=== PATIENT | male | born 1990 | race African-American/Black ===

== ENCOUNTER 2023-12-02 22:41 | Inpatient (IN) | payer MEDICAID, OTHER ==
--- NOTE | 2023-12-02 23:00 | ED ---
Psych HPI - General Chief Complaint: Psychiatric Symptoms Stated Complaint: Mental health Time Seen by Provider: 12/02/23 22:46 Source: patient, EMS, RN notes reviewed, old records reviewed Mode of arrival: EMS Limitations: no limitations - History of Present Illness Initial Comments: This is a 33-year-old male to the ER for psychiatric evaluation presenting for psychiatric evaluation and treatment today take overdose scottie BAÑUELOS Complaint: suicidal ideation, feels depressed -: hour(s) Associated Psychiatric Symptoms: depression, suicidal ideation History of same: Yes Quality: constant Improves With: none Worsens With: none Context: recent alcohol abuse Treatments Prior to Arrival: placed on mental health hold If Self Harm: admits thoughts of self harm - Related Data Home Medications Medication Instructions Recorded Confirmed No Known Home Medications 12/03/23 12/03/23 Allergies Allergy/AdvReac Type Severity Reaction Status Date / Time No Known Allergies Allergy Verified 12/03/23 12:04 Review of Systems ROS Statement: Those systems with pertinent positive or pertinent negative responses have been documented in the HPI. ROS Other: All systems not noted in ROS Statement are negative. Past Medical History Past Medical History: No Reported History History of Any Multi-Drug Resistant Organisms: None Reported Past Surgical History: No Surgical Hx Reported Smoking Status: Current every day smoker Past Alcohol Use History: Occasional Past Drug Use History: None Reported General Exam General appearance: alert, in no apparent distress Head exam: Present: atraumatic, normocephalic, normal inspection Eye exam: Present: normal appearance, PERRL, EOMI. Absent: scleral icterus, conjunctival injection, periorbital swelling ENT exam: Present: normal exam, mucous membranes moist Neck exam: Present: normal inspection. Absent: tenderness, meningismus, lymphadenopathy Respiratory exam: Present: normal lung sounds bilaterally. Absent: respiratory distress, wheezes, rales, rhonchi, stridor Cardiovascular Exam: Present: regular rate, normal rhythm, normal heart sounds. Absent: systolic murmur, diastolic murmur, rubs, gallop, clicks GI/Abdominal exam: Present: soft, normal bowel sounds. Absent: distended, tenderness, guarding, rebound, rigid Extremities exam: Present: normal inspection, full ROM, normal capillary refill. Absent: tenderness, pedal edema, joint swelling, calf tenderness Back exam: Present: normal inspection Neurological exam: Present: alert, oriented X3, CN II-XII intact Psychiatric exam: Present: normal affect, normal mood Skin exam: Present: warm, dry, intact, normal color. Absent: rash Course Vital Signs 12/02/23 12/02/23 12/03/23 22:43 23:18 06:36 Temperature 98.6 F 98.3 F Pulse Rate 80 75 Pulse Rate [ Pulse Oximetery ] Respiratory 18 20 16 Rate Blood Pressure 117/77 126/82 Blood Pressure [Right Arm] O2 Sat by Pulse 97 100 Oximetry 12/03/23 12/03/23 17:09 20:15 Temperature 97.4 F L Pulse Rate 69 Pulse Rate [ 74 Pulse Oximetery ] Respiratory 16 18 Rate Blood Pressure 125/78 Blood Pressure 122/76 [Right Arm] O2 Sat by Pulse 98 100 Oximetry - Reevaluation(s) Reevaluation #1: 12/03/23 00:18 Medical records reviewed Reevaluation #2: Medically clear for psychiatric evaluation Reevaluation #3: Patient has no improvement in symptoms Reevaluation #4: Differential Mental Health Depression, anxiety, bipolar, psychosis, schizophrenia, borderline personality, situational depression, adjustment disorder, behavioral disorder, brain tumor, malingering, substance abuse, encephalopathy, medication reaction, dementia, hypothyroidism, degenerative neurologic disorder, lupus.... This is not meant to be all-inclusive list Medical Decision Making - Medical Decision Making 33 male will be admitted for psychiatric evaluation and treatment - Lab Data Result diagrams: 12/03/23 01:05 12/03/23 01:05 Lab Results 12/03/23 12/03/23 12/03/23 Range/Units 00:30 01:05 01:05 WBC 8.9 (3.8-10.6) k/uL RBC 4.79 (4.30-5.90) m/uL Hgb 15.3 (13.0-17.5) gm/dL Hct 46.0 (39.0-53.0) % MCV 96.1 (80.0-100.0) fL MCH 32.0 (25.0-35.0) pg MCHC 33.3 (31.0-37.0) g/dL RDW 11.7 (11.5-15.5) % Plt Count 185 (150-450) k/uL MPV 7.2 Neutrophils % 76 % Lymphocytes % 14 % Monocytes % 6 % Eosinophils % 2 % Basophils % 1 % Neutrophils # 6.8 (1.3-7.7) k/uL Lymphocytes # 1.3 (1.0-4.8) k/uL Monocytes # 0.5 (0-1.0) k/uL Eosinophils # 0.2 (0-0.7) k/uL Basophils # 0.1 (0-0.2) k/uL PT 12.3 (10.0-12.5) sec INR 1.2 H (<1.2) Sodium (137-145) mmol/L Potassium (3.5-5.1) mmol/L Chloride (98-107) mmol/L Carbon Dioxide (22-30) mmol/L Anion Gap mmol/L BUN (9-20) mg/dL Creatinine (0.66-1.25) mg/dL Est GFR (CKD-EPI)AfAm (>60 ml/min/1.73 sqM) Est GFR (CKD-EPI)NonAf (>60 ml/min/1.73 sqM) Glucose (74-99) mg/dL Calcium (8.4-10.2) mg/dL Total Bilirubin (0.2-1.3) mg/dL Conjugated Bilirubin (0.0-0.3) mg/dL Unconjugated Bilirubin (0.0-1.1) mg/dL Delta Bilirubin (0.0-0.2) mg/dL AST (17-59) U/L ALT (4-49) U/L Alkaline Phosphatase (38-126) U/L Troponin I (0.000-0.034) ng/mL Total Protein (6.3-8.2) g/dL Albumin (3.5-5.0) g/dL Lipase (23-300) U/L Urine Color Yellow Urine Appearance Cloudy (Clear) Urine pH 6.0 (5.0-8.0) Ur Specific [place] 1.039 H (1.001-1.035) Urine Protein Trace H (Negative) Urine Glucose (UA) Negative (Negative) Urine Ketones Trace H (Negative) Urine Blood Negative (Negative) Urine Nitrite Negative (Negative) Urine Bilirubin Negative (Negative) Urine Urobilinogen 2.0 (<2.0) mg/dL Ur Leukocyte Esterase Moderate H (Negative) Urine RBC 12 H (0-5) /hpf Urine WBC 117 H (0-5) /hpf Calcium Oxalate Crystal Many H (None) /hpf Hyaline Casts 3 H (0-2) /lpf Urine Mucus Many H (None) /hpf Salicylates mg/dL Urine Opiates Screen Not Detected (NotDetected) Ur Oxycodone Screen Not Detected (NotDetected) Urine Methadone Screen Not Detected (NotDetected) Acetaminophen ug/mL Ur Barbiturates Screen Not Detected (NotDetected) U Tricyclic Antidepress Not Detected (NotDetected) Ur Phencyclidine Scrn Not Detected (NotDetected) Ur Amphetamines Screen Not Detected (NotDetected) U Methamphetamines Scrn Not Detected (NotDetected) U Benzodiazepines Scrn Not Detected (NotDetected) Urine Cocaine Screen Not Detected (NotDetected) U Marijuana (THC) Screen Detected H (NotDetected) Serum Alcohol mg/dL SARS-CoV-2 (PCR) (Not Detectd) 12/03/23 12/03/23 12/03/23 Range/Units 01:05 01:05 02:34 WBC (3.8-10.6) k/uL RBC (4.30-5.90) m/uL Hgb (13.0-17.5) gm/dL Hct (39.0-53.0) % MCV (80.0-100.0) fL MCH (25.0-35.0) pg MCHC (31.0-37.0) g/dL RDW (11.5-15.5) % Plt Count (150-450) k/uL MPV Neutrophils % % Lymphocytes % % Monocytes % % Eosinophils % % Basophils % % Neutrophils # (1.3-7.7) k/uL Lymphocytes # (1.0-4.8) k/uL Monocytes # (0-1.0) k/uL Eosinophils # (0-0.7) k/uL Basophils # (0-0.2) k/uL PT (10.0-12.5) sec INR (<1.2) Sodium 140 (137-145) mmol/L Potassium 3.8 (3.5-5.1) mmol/L Chloride 109 H (98-107) mmol/L Carbon Dioxide 29 (22-30) mmol/L Anion Gap 2 mmol/L BUN 9 (9-20) mg/dL Creatinine 0.80 (0.66-1.25) mg/dL Est GFR (CKD-EPI)AfAm >90 (>60 ml/min/1.73 sqM) Est GFR (CKD-EPI)NonAf >90 (>60 ml/min/1.73 sqM) Glucose 88 (74-99) mg/dL Calcium 9.1 (8.4-10.2) mg/dL Total Bilirubin 0.8 (0.2-1.3) mg/dL Conjugated Bilirubin 0.0 (0.0-0.3) mg/dL Unconjugated Bilirubin 0.6 (0.0-1.1) mg/dL Delta Bilirubin 0.2 (0.0-0.2) mg/dL AST 16 L (17-59) U/L ALT 10 (4-49) U/L Alkaline Phosphatase 57 (38-126) U/L Troponin I <0.012 (0.000-0.034) ng/mL Total Protein 6.1 L (6.3-8.2) g/dL Albumin 4.1 (3.5-5.0) g/dL Lipase 46 (23-300) U/L Urine Color Urine Appearance (Clear) Urine pH (5.0-8.0) Ur Specific [place] (1.001-1.035) Urine Protein (Negative) Urine Glucose (UA) (Negative) Urine Ketones (Negative) Urine Blood (Negative) Urine Nitrite (Negative) Urine Bilirubin (Negative) Urine Urobilinogen (<2.0) mg/dL Ur Leukocyte Esterase (Negative) Urine RBC (0-5) /hpf Urine WBC (0-5) /hpf Calcium Oxalate Crystal (None) /hpf Hyaline Casts (0-2) /lpf Urine Mucus (None) /hpf Salicylates <1.0 mg/dL Urine Opiates Screen (NotDetected) Ur Oxycodone Screen (NotDetected) Urine Methadone Screen (NotDetected) Acetaminophen 18.8 13.2 ug/mL Ur Barbiturates Screen (NotDetected) U Tricyclic Antidepress (NotDetected) Ur Phencyclidine Scrn (NotDetected) Ur Amphetamines Screen (NotDetected) U Methamphetamines Scrn (NotDetected) U Benzodiazepines Scrn (NotDetected) Urine Cocaine Screen (NotDetected) U Marijuana (THC) Screen (NotDetected) Serum Alcohol <10 mg/dL SARS-CoV-2 (PCR) (Not Detectd) 12/03/23 Range/Units 14:48 WBC (3.8-10.6) k/uL RBC (4.30-5.90) m/uL Hgb (13.0-17.5) gm/dL Hct (39.0-53.0) % MCV (80.0-100.0) fL MCH (25.0-35.0) pg MCHC (31.0-37.0) g/dL RDW (11.5-15.5) % Plt Count (150-450) k/uL MPV Neutrophils % % Lymphocytes % % Monocytes % % Eosinophils % % Basophils % % Neutrophils # (1.3-7.7) k/uL Lymphocytes # (1.0-4.8) k/uL Monocytes # (0-1.0) k/uL Eosinophils # (0-0.7) k/uL Basophils # (0-0.2) k/uL PT (10.0-12.5) sec INR (<1.2) Sodium (137-145) mmol/L Potassium (3.5-5.1) mmol/L Chloride (98-107) mmol/L Carbon Dioxide (22-30) mmol/L Anion Gap mmol/L BUN (9-20) mg/dL Creatinine (0.66-1.25) mg/dL Est GFR (CKD-EPI)AfAm (>60 ml/min/1.73 sqM) Est GFR (CKD-EPI)NonAf (>60 ml/min/1.73 sqM) Glucose (74-99) mg/dL Calcium (8.4-10.2) mg/dL Total Bilirubin (0.2-1.3) mg/dL Conjugated Bilirubin (0.0-0.3) mg/dL Unconjugated Bilirubin (0.0-1.1) mg/dL Delta Bilirubin (0.0-0.2) mg/dL AST (17-59) U/L ALT (4-49) U/L Alkaline Phosphatase (38-126) U/L Troponin I (0.000-0.034) ng/mL Total Protein (6.3-8.2) g/dL Albumin (3.5-5.0) g/dL Lipase (23-300) U/L Urine Color Urine Appearance (Clear) Urine pH (5.0-8.0) Ur Specific [place] (1.001-1.035) Urine Protein (Negative) Urine Glucose (UA) (Negative) Urine Ketones (Negative) Urine Blood (Negative) Urine Nitrite (Negative) Urine Bilirubin (Negative) Urine Urobilinogen (<2.0) mg/dL Ur Leukocyte Esterase (Negative) Urine RBC (0-5) /hpf Urine WBC (0-5) /hpf Calcium Oxalate Crystal (None) /hpf Hyaline Casts (0-2) /lpf Urine Mucus (None) /hpf Salicylates mg/dL Urine Opiates Screen (NotDetected) Ur Oxycodone Screen (NotDetected) Urine Methadone Screen (NotDetected) Acetaminophen ug/mL Ur Barbiturates Screen (NotDetected) U Tricyclic Antidepress (NotDetected) Ur Phencyclidine Scrn (NotDetected) Ur Amphetamines Screen (NotDetected) U Methamphetamines Scrn (NotDetected) U Benzodiazepines Scrn (NotDetected) Urine Cocaine Screen (NotDetected) U Marijuana (THC) Screen (NotDetected) Serum Alcohol mg/dL SARS-CoV-2 (PCR) Not Detected (Not Detectd) Disposition Clinical Impression: Acute psychosis, Depression, Adjustment reaction of adult life, Suicidal ideation Disposition: TRANSFER TO PSYCH HOSP/UNIT Condition: Fair Is patient prescribed a controlled substance at d/c from ED?: No
[2023-12-03] MEDS: SODIUM CHLORIDE 0.9% 500 ML 500 ML IV STA (00:50)
[2023-12-03] MEDS: SODIUM CHLORIDE 0.9% 1,000 ML IV STA (00:50)
[2023-12-03 01:23] LABS: Basophils # (A) 0.1 k/uL (0-0.2); Basophils % (A) 1 %; Eosinophils # (A) 0.2 k/uL (0-0.7); Eosinophils % (A) 2 %; HGB 15.3 gm/dL (13.0-17.5); Lymphocytes # (A) 1.3 k/uL (1.0-4.8); Lymphocytes % (A) 14 %; MCHC 33.3 g/dL (31.0-37.0); MCV 96.1 fL (80.0-100.0); Mean Platelet Volume 7.2; Monocytes # (A) 0.5 k/uL (0-1.0); Monocytes % (A) 6 %; Neutrophils # (A) 6.8 k/uL (1.3-7.7); Neutrophils % (A) 76 %; Platelet Count 185 k/uL (150-450); RBC 4.79 m/uL (4.30-5.90); RDW 11.7 % (11.5-15.5); WBC 8.9 k/uL (3.8-10.6)
[2023-12-03 01:28] LABS: ALT 10 U/L (4-49); AST 16 U/L (17-59); Acetaminophen 18.8 ug/mL; African American GFR (CKD) >90 (>60 ml/min/1.73 sqM); Albumin 4.1 g/dL (3.5-5.0); Alcohol <10 mg/dL; Alkaline Phosphatase 57 U/L (38-126); Anion Gap 2 mmol/L; Bilirubin, Delta 0.2 mg/dL (0.0-0.2); Bilirubin,Unconjugated 0.6 mg/dL (0.0-1.1); Blood Urea Nitrogen 9 mg/dL (9-20); Calcium 9.1 mg/dL (8.4-10.2); Carbon Dioxide 29 mmol/L (22-30); Chloride 109 mmol/L (98-107); Glucose 88 mg/dL (74-99); Lipase 46 U/L (23-300); Non-African American GFR(CKD) >90 (>60 ml/min/1.73 sqM); Potassium 3.8 mmol/L (3.5-5.1); Salicylate <1.0 mg/dL; Sodium 140 mmol/L (137-145); Total Bilirubin 0.8 mg/dL (0.2-1.3); Total Protein 6.1 g/dL (6.3-8.2)
[2023-12-03 02:05] LABS: INR 1.2 (<1.2); Prothrombin Time 12.3 sec (10.0-12.5)
[2023-12-03 02:10] LABS: Appearance,Urine Cloudy (Clear); Bilirubin,Urine Negative (Negative); Blood,Urine Negative (Negative); Calcium Oxalate Crystals,Urine Many /hpf; Color,Urine Yellow; Glucose,Urine (UA) Negative (Negative); Hyaline Casts,Urine 3 /lpf (0-2); Ketones,Urine Trace (Negative); Leukocyte Esterase,Urine Moderate (Negative); Mucus,Urine Many /hpf; Nitrite,Urine Negative (Negative); Protein,Urine Trace (Negative); RBC,Urine 12 /hpf (0-5); Specific Gravity,Urine 1.039 (1.001-1.035); WBC,Urine 117 /hpf (0-5)
[2023-12-03 02:11] LABS: Amphetamine Screen,Urine Not Detected (NotDetected); Barbiturate Screen,Urine Not Detected (NotDetected); Benzodiazepines Screen,Urine Not Detected (NotDetected); Cocaine Screen,Urine Not Detected (NotDetected); Methadone Screen, Urine Not Detected (NotDetected); Opiate Screen,Urine Not Detected (NotDetected); Oxycodone Screen, Urine Not Detected (NotDetected); Phencyclidine Screen,Urine Not Detected (NotDetected); Tricyclic Antidepressant,Urine Not Detected (NotDetected); Urn Cannabinoid Scrn Detected (NotDetected)
[2023-12-03] MEDS: NICOTINE 21MG/24HR PATCH TRANSDERM STA (14:48)
[2023-12-03] MEDS ORDERED: LORazepam 2 MG/ML INJ IM PRN (17:09)
[2023-12-03] MEDS ORDERED: IBUPROFEN 600 MG TAB PO PRN (17:09)
[2023-12-03] MEDS ORDERED: HALOPERIDOL LACTATE 5 MG/ML 1 ML VIAL IM PRN (17:09)
[2023-12-03] MEDS ORDERED: MAG HYDROX/AL HYDROX/SIMETH 355 ML BOTTLE PO PRN (17:09)
[2023-12-03] MEDS ORDERED: ACETAMINOPHEN TAB 325 MG TAB PO PRN (17:09)
[2023-12-03] MEDS ORDERED: haloperidoL 5 MG TAB PO PRN (17:09)
[2023-12-03] MEDS ORDERED: MAGNESIUM HYDROXIDE 2,400 MG/30 ML CUP PO PRN (17:09)
--- NOTE | 2023-12-04 00:05 | P.CONS ---
History of Present Illness - Reason for Consult Consult date: 12/03/23 - History of Present Illness The patient is a 33-year-old male with no known PMH who had presented to the emergency room for depression and suicidal ideation after apparently attempting to overdose. The patient was admitted to the mental health unit where he was seen and evaluated. The patient notes that he took too much NyQuil accidentally while he was trying to sleep. He denies any past medical history and no active complaints at the time of interview. He does report smoking half pack of cigarettes daily. Denied illicit substance or alcohol use. 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 Denied experiencing chest discomfort, shortness of breath, fever, chills, cough, nausea, vomiting, abdominal pain, dysuria, diarrhea. Review of systems: Pertinent positives and negatives as discussed in HPI, a complete review of systems was performed and all other systems are negative. Physical examination: General: non toxic, no distress, appears at stated age, normal weight Derm: no unusual rashes/lesions, no unusual ecchymoses, warm, dry Head: atraumatic, normocephalic, symmetric Eyes: EOMI, no lid lag, anicteric sclera ENT: Nose and ears atraumatic, no thrush, no pharyngeal erythema Neck: trachea midline, supple Mouth: no lip lesion, mucus membranes moist Cardiovascular: S1S2 reg, no murmur, no edema Lungs: CTA bilateral, no rhonchi, no rales , no accessory muscle use Abdominal: soft, nontender to palpation, no guarding Ext: no gross muscle atrophy, no contractures, Neuro: No gross focal neuro deficits noted Psych: Alert, oriented, appropriate affect Assessment: Abnormal UA, patient currently asymptomatic Marijuana abuse Depression Imaging: None performed Data Review: Urine toxicology positive for marijuana with UA showing 117 WBCs and 12 RBCs with moderate leukocyte esterase and trace ketones. Plan: Hold off on any antibiotics at this time as patient is asymptomatic Advised on importance of cessation of marijuana use Defer management of depression to the primary psychiatry service Thank you for allowing us to participate in the care of this patient. We will follow peripherally. Do not hesitate to contact us with questions. Someone can be reached from the [facility] hospitalist group at all hours of the day at [phone]. Past Medical History Past Medical History: No Reported History History of Any Multi-Drug Resistant Organisms: None Reported Past Surgical History: No Surgical Hx Reported Past Psychological History: No Psychological Hx Reported Additional Psychological History / Comment(s): Pt. feels depressed but has no formal diagnosis Smoking Status: Current every day smoker Past Alcohol Use History: Occasional Past Drug Use History: None Reported Medications and Allergies Home Medications Medication Instructions Recorded Confirmed Type No Known Home Medications 12/03/23 12/03/23 History Allergies Allergy/AdvReac Type Severity Reaction Status Date / Time No Known Allergies Allergy Verified 12/03/23 12:04 Physical Exam Vitals: Vital Signs Temp Pulse Pulse Resp BP BP Pulse Ox 12/03/23 20:15 69 18 125/78 100 12/03/23 17:09 97.4 F L 74 16 122/76 98 12/03/23 06:36 98.3 F 75 16 126/82 100 Intake and Output 12/03/23 12/03/23 12/04/23 14:59 22:59 06:59 Other: Weight 76.43 kg Results CBC & Chem 7: 12/03/23 01:05 12/03/23 01:05 Labs: Abnormal Lab Results - Last 24 Hours (Table) 12/03/23 12/03/23 12/03/23 Range/Units 00:30 01:05 01:05 INR 1.2 H (<1.2) Chloride 109 H (98-107) mmol/L AST 16 L (17-59) U/L Total Protein 6.1 L (6.3-8.2) g/dL Ur Specific [place] 1.039 H (1.001-1.035) Urine Protein Trace H (Negative) Urine Ketones Trace H (Negative) Ur Leukocyte Esterase Moderate H (Negative) Urine RBC 12 H (0-5) /hpf Urine WBC 117 H (0-5) /hpf Calcium Oxalate Crystal Many H (None) /hpf Hyaline Casts 3 H (0-2) /lpf Urine Mucus Many H (None) /hpf U Marijuana (THC) Screen Detected H (NotDetected)
[2023-12-04] MEDS ORDERED: NICOTINE 14MG/24HR PATCH TRANSDERM SCH (09:00)
[2023-12-04] MEDS: NICOTINE GUM (POLACRILEX) 2 MG GUM BUCCAL PRN (12:02)
--- NOTE | 2023-12-04 14:25 | P.HP ---
Psychiatric H&P - . H&P Date: 12/04/23 History & Physical: Allergies Allergy/AdvReac Type Severity Reaction Status Date / Time No Known Allergies Allergy Verified 12/03/23 12:04 Vital Signs Temp 97.1 F L 12/04/23 06:00 Pulse 70 12/04/23 06:00 Resp 17 12/04/23 06:00 BP 117/76 12/04/23 06:00 Pulse Ox 100 12/04/23 06:00 FiO2 Intake & Output 12/03/23 12/04/23 12/04/23 18:59 06:59 18:59 Weight 76.43 kg Laboratory Last Values WBC 8.9 k/uL (3.8-10.6) 12/03/23 01:05 RBC 4.79 m/uL (4.30-5.90) 12/03/23 01:05 Hgb 15.3 gm/dL (13.0-17.5) 12/03/23 01:05 Hct 46.0 % (39.0-53.0) 12/03/23 01:05 MCV 96.1 fL (80.0-100.0) 12/03/23 01:05 MCH 32.0 pg (25.0-35.0) 12/03/23 01:05 MCHC 33.3 g/dL (31.0-37.0) 12/03/23 01:05 RDW 11.7 % (11.5-15.5) 12/03/23 01:05 Plt Count 185 k/uL (150-450) 12/03/23 01:05 MPV 7.2 12/03/23 01:05 Neutrophils % 76 % 12/03/23 01:05 Lymphocytes % 14 % 12/03/23 01:05 Monocytes % 6 % 12/03/23 01:05 Eosinophils % 2 % 12/03/23 01:05 Basophils % 1 % 12/03/23 01:05 Neutrophils # 6.8 k/uL (1.3-7.7) 12/03/23 01:05 Lymphocytes # 1.3 k/uL (1.0-4.8) 12/03/23 01:05 Monocytes # 0.5 k/uL (0-1.0) 12/03/23 01:05 Eosinophils # 0.2 k/uL (0-0.7) 12/03/23 01:05 Basophils # 0.1 k/uL (0-0.2) 12/03/23 01:05 PT 12.3 sec (10.0-12.5) 12/03/23 01:05 INR 1.2 (<1.2) H 12/03/23 01:05 Sodium 140 mmol/L (137-145) 12/03/23 01:05 Potassium 3.8 mmol/L (3.5-5.1) 12/03/23 01:05 Chloride 109 mmol/L (98-107) H 12/03/23 01:05 Carbon Dioxide 29 mmol/L (22-30) 12/03/23 01:05 Anion Gap 2 mmol/L 12/03/23 01:05 BUN 9 mg/dL (9-20) 12/03/23 01:05 Creatinine 0.80 mg/dL (0.66-1.25) 12/03/23 01:05 Est GFR (CKD-EPI)AfAm >90 (>60 ml/min/1.73 sqM) 12/03/23 01:05 Est GFR (CKD-EPI)NonAf >90 (>60 ml/min/1.73 sqM) 12/03/23 01:05 Glucose 88 mg/dL (74-99) 12/03/23 01:05 Calcium 9.1 mg/dL (8.4-10.2) 12/03/23 01:05 Total Bilirubin 0.8 mg/dL (0.2-1.3) 12/03/23 01:05 Conjugated Bilirubin 0.0 mg/dL (0.0-0.3) 12/03/23 01:05 Unconjugated Bilirubin 0.6 mg/dL (0.0-1.1) 12/03/23 01:05 Delta Bilirubin 0.2 mg/dL (0.0-0.2) 12/03/23 01:05 AST 16 U/L (17-59) L 12/03/23 01:05 ALT 10 U/L (4-49) 12/03/23 01:05 Alkaline Phosphatase 57 U/L (38-126) 12/03/23 01:05 Troponin I <0.012 ng/mL (0.000-0.034) 12/03/23 01:05 Total Protein 6.1 g/dL (6.3-8.2) L 12/03/23 01:05 Albumin 4.1 g/dL (3.5-5.0) 12/03/23 01:05 Lipase 46 U/L (23-300) 12/03/23 01:05 TSH 1.440 mIU/L (0.465-4.680) 12/04/23 07:53 Urine Color Yellow 12/03/23 00:30 Urine Appearance Cloudy (Clear) 12/03/23 00:30 Urine pH 6.0 (5.0-8.0) 12/03/23 00:30 Ur Specific [place] 1.039 (1.001-1.035) H 12/03/23 00:30 Urine Protein Trace (Negative) H 12/03/23 00:30 Urine Glucose (UA) Negative (Negative) 12/03/23 00:30 Urine Ketones Trace (Negative) H 12/03/23 00:30 Urine Blood Negative (Negative) 12/03/23 00:30 Urine Nitrite Negative (Negative) 12/03/23 00:30 Urine Bilirubin Negative (Negative) 12/03/23 00:30 Urine Urobilinogen 2.0 mg/dL (<2.0) 12/03/23 00:30 Ur Leukocyte Esterase Moderate (Negative) H 12/03/23 00:30 Urine RBC 12 /hpf (0-5) H 12/03/23 00:30 Urine WBC 117 /hpf (0-5) H 12/03/23 00:30 Calcium Oxalate Crystal Many /hpf (None) H 12/03/23 00:30 Hyaline Casts 3 /lpf (0-2) H 12/03/23 00:30 Urine Mucus Many /hpf (None) H 12/03/23 00:30 Salicylates <1.0 mg/dL 12/03/23 01:05 Urine Opiates Screen Not Detected (NotDetected) 12/03/23 00:30 Ur Oxycodone Screen Not Detected (NotDetected) 12/03/23 00:30 Urine Methadone Screen Not Detected (NotDetected) 12/03/23 00:30 Acetaminophen 13.2 ug/mL 12/03/23 02:34 Ur Barbiturates Screen Not Detected (NotDetected) 12/03/23 00:30 U Tricyclic Antidepress Not Detected (NotDetected) 12/03/23 00:30 Ur Phencyclidine Scrn Not Detected (NotDetected) 12/03/23 00:30 Ur Amphetamines Screen Not Detected (NotDetected) 12/03/23 00:30 U Methamphetamines Scrn Not Detected (NotDetected) 12/03/23 00:30 U Benzodiazepines Scrn Not Detected (NotDetected) 12/03/23 00:30 Urine Cocaine Screen Not Detected (NotDetected) 12/03/23 00:30 U Marijuana (THC) Screen Detected (NotDetected) H 12/03/23 00:30 Serum Alcohol <10 mg/dL 12/03/23 01:05 SARS-CoV-2 (PCR) Not Detected (Not Detectd) 12/03/23 14:48 12/04/23 14:17 patient was seen in the emergency room on 1010 and their evaluation was: The patient is a 33-year-old male with no known PMH who had presented to the emergency room for depression and suicidal ideation after apparently attempting to overdose. The patient was admitted to the mental health unit where he was seen and evaluated. The patient notes that he took too much NyQuil accidentally while he was trying to sleep. He denies any past medical history and no active complaints at the time of interview. He does report smoking half pack of cigarettes daily. Denied illicit substance or alcohol use. 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 Denied experiencing chest discomfort, shortness of breath, fever, chills, cough, nausea, vomiting, abdominal pain, dysuria, diarrhea. Subjective: The patient says that it was not an accidental overdose on the NyQuil that he did it on purpose. The reason for wanting to kill himself is that he was staying with his parents working and saving up money to get his life together when his sister and her family with children moved in he was crowded they were messy the sister did not want to help with taking out the garbage cleaning up cooking or anything. When he confronted her on that he said that she lied made him look bad and their father took her side so had to leave and he found himself sleeping in his car. He has not had a job since August of this year he does part-time work when he can find it but things are really tight. He became depressed and suicidal. Symptoms: The patient has a lot of trouble with getting to sleep and staying asleep he has no appetite and has lost weight and has no energy can't focus which makes it harder for him to put her life together. Preps of more importance is that the way he feels seems to fluctuate wildly and go up and down on the same day. He will have times where has way too much energy and can't sit still and has to get up and do projects and is often hits the end of the day when he should be calming down and going to sleep. During these times he will say things without thinking start projects and not finish them agreed to do something and then not follow through but he feels pretty good and then this goes away and he is depressed. He denies now or in the past any psychotic symptoms. History of present illness no previous history of being treated for depression or taking medications. No hospitalizations Mental status exam: The patient is alert, oriented, well operative, sad affect, slow response times, poor memory, did not show any psychotic symptoms. Concentration is poor I gave him 3 things to remember had to repeat it 3 times before he got it but he could remember it after 3 minutes. He could name the last 4 presidents. General information is impaired pry due to poor education when asked to name the [place] he remembered [place] but could not remember any other [facility]. He could spell world backward slowly but when asked to subtract 7 from 93 that was too difficult due to the poor concentration. My assessment is that he has above-average intellect but isn't doing much good due to the burn out and mood swings. When asked how cats and snakes are alike he said they have reflexes amphetamines and could not think of any other similarity. 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 I do believe that he is a danger to self of others is he still has no clear plan for more he has to her life would be worth living. Plan trial of Seroquel will help him sleep help with appetite and calm him down and stabilize moods. He said he'll to give him more energy he has set only if the sleeping helps. Maybe once his moods are stable we could add in some Wellbutrin for the energy.
[2023-12-04 14:57] LABS: Chol/HDL Ratio 3.22 Ratio; LDL Cholesterol,Calculated 91.4 mg/dL (0.0-131.0); VLDL Calculation 12.68 mg/dL (5.00-40.00)
[2023-12-04] MEDS: QUEtiapine 200 MG TAB PO SCH (22:06)
--- NOTE | 2023-12-05 11:10 | P.PN ---
Subjective Progress Note Date: 12/05/23 Principal diagnosis: cyclothymic HPI:The patient says that it was not an accidental overdose on the NyQuil that he did it on purpose. The reason for wanting to kill himself is that he was staying with his parents working and saving up money to get his life together when his sister and her family with children moved in he was crowded they were messy the sister did not want to help with taking out the garbage cleaning up cooking or anything. When he confronted her on that he said that she lied made him look bad and their father took her side so had to leave and he found himself sleeping in his car. He has not had a job since August of this year he does part- time work when he can find it but things are really tight. He became depressed and suicidal. Symptoms: The patient has a lot of trouble with getting to sleep and staying asleep he has no appetite and has lost weight and has no energy can't focus which makes it harder for him to put her life together. Preps of more importance is that the way he feels seems to fluctuate wildly and go up and down on the same day. He will have times where has way too much energy and can't sit still and has to get up and do projects and is often hits the end of the day when he should be calming down and going to sleep. During these times he will say things without thinking start projects and not finish them agreed to do s omething and then not follow through but he feels pretty good and then this goes away and he is depressed. He denies now or in the past any psychotic symptoms. Subjective: He did sleep well last night and feels calmer today shortly after taking medicine last night he did have some restless leg syndrome but does not feel that this morning. Mental status exam: The patient came readily but interestingly, he talks so softly I can just barely hear him. When I asked him why he could not give me a good explanation The patient is alert, oriented, well operative, sad affect, slow response times, poor memory, did not show any psychotic symptoms. My assessment is that he has above-average intellect but isn't doing much good due to the burn out and mood swings. When asked how cats and snakes are alike he said they have reflexes amphetamines and could not think of any other similarity. 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 I do believe that he is a danger to self of others is he still has no clear plan for more he has to her life would be worth living. I think the Seroquel is already helped the question is whether he will have too much restless leg to tolerate I think he should try 1 more night. However I'm not going to increase Objective - Vital Signs Vital signs: Vital Signs Temp 97.1 F L 12/04/23 06:00 Pulse 70 12/04/23 06:00 Resp 17 12/04/23 06:00 BP 117/76 12/04/23 06:00 Pulse Ox 100 12/04/23 06:00 FiO2 Intake & Output 12/04/23 12/05/23 12/05/23 18:59 06:59 18:59 Weight 76.9 kg - Labs CBC & Chem 7: 12/03/23 01:05 12/03/23 01:05
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
[2023-12-06] MEDS: SERTRALINE 25 MG TAB PO SCH (22:38)
--- NOTE | 2023-12-07 14:09 | P.PN ---
Progress Note - Text Progress Note Date: 12/07/23 Interval History: Patient was seen in the break room and was directable and agreeable to speak w ith sports writer in the office. Patient was pleasant and engaging. He notes that his depression has improved from 10/10 to 5/10 with 10 being worse. He notes that his anxiety has been fluctuating. He notes that with the Seroquel he sleeping at night initially he was having problems with his legs. He notes that his energy is improving and has normal appetite. He struggles with his concentration. We discussed briefly about the suicide attempt in which she felt that life was not worth living because he could not get ahead. Patient had noted that anytime that he tries something he generally takes the wrong direction on the next step. When asking about suicidal thoughts he notes that he has some at night. He denied any plan or intent and did not know if he would be suicidal if he left today. At this time patient denies any suicidal or homical ideations, intent or plan. Patient denies any auditory, visual hallucinations and denies any paranoia or delusions. Patient denies any side effects from the medications and has been compliant with meds. Mental Status Exam: General Appearance: Patient appears to be stated age is alert, directable, and cooperative. Behavior: Patient appeared to be slightly slow and lethargic. Speech: Patient's speech is fluent and nonpressured. Mood/Affect: Mood is improving mildly, affect is congruent and constricted. Suicidality/Homicidality: Patient denies having any suicidal or homicidal ideation intent or plan. Perceptions: Patient denies any visual hallucinations and denies any auditory hallucinations Though content/process: Patient continues to have thoughts of however is able to converse in a linear and logical manner. Memory and concentration: AOX3, grossly intact for the purposes of this session Judgment and insight: Improving mildly Diagnosis: Major depressive disorder recurrent severe with suicidal ideations Assessment Patient continues to voice suicidal thoughts but does not know if he would kill himself if he left today. Additionally there has been some improvement in depression but anxiety is still a problem. Patient continues to have a negative outlook on life. Plan: -Patient continues to meet criteria for inpatient psychiatric admission for symptom stabilization and safety. Patient has signed adult voluntary form and medication consent and was placed in patient's chart. -Medications: * Increase Zoloft 50 mg take 1 tablet by mouth once daily for depression * Continue Seroquel 200 mg at bedtime for insomnia/depression/psychosis -When necessary Ativan and Haldol for agitation/aggression. -NRT -continue nicotine gum -SW on board for discharge planning. Encouraged the patient to participate in milieu.
[2023-12-07] MEDS: SERTRALINE 50 MG TAB PO SCH (21:58)
--- NOTE | 2023-12-08 14:48 | P.PN ---
Progress Note - Text Progress Note Date: 12/08/23 Chief complaint: "Depression" Interval History: Patient was seen in the break room and requested that the door to be shot so we could do the interview. Patient notes that he feels "all right". He notes no side effects from the increased dose of Zoloft. He notes that he did not have any suicidal thoughts so far today. He continues to rate his depression at 5/10 with 10 being worst. He notes that his sleep is returned to normal as well as his appetite. He feels that his energy continues to improve. He continues to king concentration issues specifically focus. He notes a lot of anxiety especially being around people. Further information was obtained that the patient struggles being around groups due to fear of judgment. He notes that he gravitates towards jobs do not present problems of groups of new people. At this time patient denies any suicidal or homical ideations, intent or plan. Patient denies any auditory, visual hallucinations and denies any paranoia or delusions. Patient denies any side effects from the medications and has been compliant with meds. Mental Status Exam: General Appearance: Patient appears to be stated age is alert, directable, and cooperative. Behavior: Patient is calmly seated without any agitated behavior. Speech: Patient's speech is fluent and nonpressured. Mood/Affect: Mood is improving mildly, affect is congruent and constricted. Suicidality/Homicidality: Patient denies having any suicidal or homicidal ideation intent or plan. Perceptions: Patient denies any visual hallucinations and denies any auditory hallucinations Though content/process: There is no evidence of any delusional thought content and thought process is linear and goal-directed. Memory and concentration: AOX3, grossly intact for the purposes of this session Judgment and insight: Improving mildly Diagnosis: Major depressive disorder recurrent severe with suicidal ideations Assessment Patient may be suffering from social anxiety disorder which is impeding his progress in society. He does have fear of judgment from others. Further evaluation is needed. You are having improvement this is the first day he did not have any suicidal thoughts. Plan: -Patient continues to meet criteria for inpatient psychiatric admission for symptom stabilization and safety. Patient has signed adult voluntary form and medication consent and was placed in patient's chart. -Medications: Continue Zoloft 50 mg take 1 tablet by mouth once daily for depression Continue Seroquel 200 mg at bedtime for insomnia/depression/psychosis -Education: Patient was given a handout on social anxiety disorder to review at which point we will discuss tomorrow. -When necessary Ativan and Haldol for agitation/aggression. -NRT -continue nicotine gum -SW on board for discharge planning. Encouraged the patient to participate in milieu.
--- NOTE | 2023-12-09 14:24 | P.PN ---
Progress Note - Text Progress Note Date: 12/09/23 Chief complaint: "Depression/anxiety" Interval History: Patient was seen [wandering the hallways] and was directable and agreeable to speak with abstract writer in the office. Patient notes that he is feeling "good today". This is the second day he denied any suicidal thoughts. He did review the soci al anxiety handout and feels that this describes his personality. The patient has not had any change in his depression score and still rates it 5/10. He continues to have increased anxiety being around certain people. He notes that he did not sleep well last night because his roommate was snoring. His energy remains fair. His appetite is good. Notes that his concentration remains chronically poor. He notes that he has hard times incorporating short-term memory including reading.Patient denies any side effects from the medications and has been compliant with meds. Mental Status Exam: General Appearance: [Patient appears to be stated age is alert, directable, and cooperative.] Behavior: Patient presented slightly anxious and was slightly restless but no irritability was detected Speech: Patient's speech is fluent and nonpressured. Mood/Affect: Mood is improving mildly, affect is congruent and constricted. Suicidality/Homicidality: Patient denies having any suicidal or homicidal ideation intent or plan. Perceptions: Patient denies any visual hallucinations [and denies any auditory hallucinations] Though content/process: [There is no evidence of any delusional thought content and thought process is linear and goal-directed.] Memory and concentration: AOX3, grossly intact for the purposes of this session Judgment and insight: Improving mildly Diagnosis: Major depressive disorder recurrent moderate Social anxiety disorder Assessment Meeting with the patient he does fit criteria for social anxiety disorder. He is a possibility of learning disability patient had noted as a child he used to read things backwards. Currently he striving to try to improve his life and multiple tips were given during the assessment. At this time it is felt the continue hospitalization for safety concerns and to continue stabilization. Plan: -Patient continues to meet criteria for inpatient psychiatric admission for symptom stabilization and safety. Patient has signed adult voluntary form and medication consent and was placed in patient's chart. -Medications: Continue Zoloft 50 mg take 1 tablet by mouth once daily for depression Continue Seroquel 200 mg at bedtime for insomnia/depression/psychosis -Education: Patient was given a handout on social anxiety disorder to review at which point we will discuss tomorrow. -When necessary Ativan and Haldol for agitation/aggression. -NRT -continue nicotine gum -SW on board for discharge planning. Encouraged the patient to participate in milieu.
--- NOTE | 2023-12-10 11:28 | P.PN ---
Progress Note - Text Progress Note Date: 12/10/23 Interval History: Patient was seen wandering the hallways and was directable and agreeable to sp jerzy with designer/writer in the office. Patient states that he is ok today. He has poor eye contact, and his speech is very quiet and monotone. He states that he has not been sleeping well while here, due to other patients being loud on the unit. He states that his depression is improving just a little, he does state that he wishes that he could just stay asleep, and not wake up. He is endorsing anxiety. He is denying AH/VH. He is denying SI/HI .Patient denies any side effects from the medications and has been compliant with meds. Mental Status Exam: General Appearance: Patient appears to be stated age is alert, directable, and cooperative. Dressed casually, shorter hair, martins. Behavior: Patient presented as calm and cooperative. Poor eye contact Speech: Patient's speech is fluent and nonpressured. Monotone Mood/Affect: Mood is improving mildly, affect is congruent and constricted Suicidality/Homicidality: Patient denies having any suicidal or homicidal ideation intent or plan Perceptions: Patient denies any visual hallucinations and denies any auditory hallucinations Though content/process: There is no evidence of any delusional thought content and thought process is linear and goal-directed Memory and concentration: AOX3, grossly intact for the purposes of this session Judgment and insight: poor, improving mildly Assessment: Major depressive disorder recurrent moderate Social anxiety disorder Plan: -Patient continues to meet criteria for inpatient psychiatric admission for symptom stabilization and safety. Patient has signed adult voluntary form and medication consent and was placed in patient's chart. -Medications: increase Zoloft 100mg take 1 tablet by mouth once daily for depression, Seroquel 200 mg at bedtime for insomnia/depression/psychosis, add Requip 0.25mg po qhs for restless legs. -When necessary Ativan and Haldol for agitation/aggression -NRT - continue nicotine gum -SW on board for discharge planning. Encouraged the patient to participate in milieu. likely discharge early next week if patient is improving. he is currently homeless.
[2023-12-10] MEDS: SERTRALINE 50 MG TAB PO STA (11:48)
[2023-12-11] MEDS: SERTRALINE 100 MG TAB PO SCH (08:22)
--- NOTE | 2023-12-11 14:23 | P.PN ---
Progress Note - Text Progress Note Date: 12/11/23 Interval History: Patient was seen wandering the hallways and was directable and agreeable to john bertrand with parts data writer in the office. Patient states that in regards to suicide attempt, he wishes that he tried a different medication rather than Niquil. Patient currently endorses continued suicidal ideation with plan to overdose on medication. He would not divulge which medication was considering. He states that stressors include lack of social support (particularly from his parents), hopelessness regarding the future and homelessness. He states that he feels restless during the day as well as at bedtime. He describes that it is hard for him to trust anybody because he feels that everybody has let him down. He endorses current mood to be depressed. Patient does not future oriented. He denies homicidal ideation. He denies auditory and visual hallucinations currently. Discussed impact of cannabis use on mental health and patient was agreeable with no longer using this. Mental Status Exam: General Appearance: Patient appears to be stated age is alert, directable, and cooperative. Covered in blanket. [place] hair, martins. Behavior: Patient presented as calm and cooperative. Intense wide eye contact Speech: Patient's speech is fluent and nonpressured. Monotone, low volume (almost muttered) Mood/Affect: Mood is depressed, affect is congruent and constricted Suicidality/Homicidality: Denies homicidal ideation. Endorses suicidal ideation with a plan to overdose Perceptions: Patient denies any visual hallucinations and denies any auditory hallucinations Though content/process: There is no evidence of any delusional thought content and thought process is linear and goal-directed. Hopelessness and nihilistic Memory and concentration: AOX3, grossly intact for the purposes of this session Judgment and insight: poor, improving mildly Assessment: Major depressive disorder recurrent severe Social anxiety disorder Plan: -Patient continues to meet criteria for inpatient psychiatric admission for symptom stabilization and safety. Patient has signed adult voluntary form and m edication consent and was placed in patient's chart. -Medications: Zoloft 100mg daily for depression and anxiety, Seroquel 200 mg at bedtime for insomnia/depression, Requip 0.25mg po qhs for restless legs. -When necessary Ativan and Haldol for agitation/aggression -NRT - continue nicotine gum -SW on board for discharge planning. Encouraged the patient to participate in milieu. He is currently homeless.
--- NOTE | 2023-12-12 10:01 | P.PN ---
Progress Note - Text Progress Note Date: 12/12/23 Interval History: Patient was seen wandering the hallways and was directable and agreeable to sp nettiek with ticket writer bedside. Patient says that his mood is "not too good ". However, he admits that he is feeling slightly better than yesterday. He endorses suicidal ideation is passive in nature that occurs especially at nighttime. He says he would like to "not wake up" when he goes to sleep. Patient reports sleeping well but continues to endorse having mild restlessness during the daytime causing him to want to get up out of his chair. Discussed decreasing Seroquel and patient was comfortable with this. Patient appears somewhat more engaged in conversation and is slightly brighter while discussing his symptoms. He endorses good appetite and denies all other concerns. He denies homicidal ideation. He denies auditory and visual hallucinations currently. Mental Status Exam: General Appearance: Patient appears to be stated age is alert, directable, and cooperative. Covered in blanket. [place] hair, martins. Behavior: Patient presented as calm and cooperative. Intense wide eye contact Speech: Patient's speech is fluent and nonpressured. Monotone, low volume (almost muttered) Mood/Affect: Mood is depressed, affect is congruent and constricted, smiling at times Suicidality/Homicidality: Denies homicidal ideation. Endorses suicidal ideation Perceptions: Patient denies any visual hallucinations and denies any auditory hallucinations Though content/process: There is no evidence of any delusional thought content and thought process is linear and goal-directed. Hopelessness and nihilistic Memory and concentration: AOX3, grossly intact for the purposes of this session Judgment and insight: poor, improving mildly Assessment: Major depressive disorder recurrent severe Social anxiety disorder Plan: -Patient continues to meet criteria for inpatient psychiatric admission for symptom stabilization and safety. Patient has signed adult voluntary form and medication consent and was placed in patient's chart. -Medications: Zoloft 100mg daily for depression and anxiety, decrease Seroquel to 150 mg at bedtime for insomnia/depression due to potential akathisia, Requip 0.25mg po qhs for restless legs. -When necessary Ativan and Haldol for agitation/aggression -NRT - continue nicotine gum -SW on board for discharge planning. Encouraged the patient to participate in milieu. He is currently homeless.
[2023-12-12] MEDS: QUEtiapine 50 MG TAB PO SCH (23:32)
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
[2023-12-14] MEDS: QUEtiapine 200 MG TAB PO SCH (00:08)
[2023-12-14] MEDS: SERTRALINE 100 MG TAB PO SCH (00:09)
--- NOTE | 2023-12-14 12:12 | P.PN ---
Progress Note - Text Progress Note Date: 12/14/23 Interval History: Patient was seen wandering the hallways and was directable and agreeable to sp jerzy with television script writer in the office. Patient says that his mood is improving. He states that today is not bad at all. He finally has attended groups, and really enjoys them, more than he thought he would. He states that his anxiety is still there, but it is improving. He is endorsing good sleep. He endorses good appetite and denies all other concerns. He is more optimistic about his future today, and excited about looking for housing and a job. His suicidal thoughts are still present, but he has no plan. He denies homicidal ideation. He denies auditory and visual hallucinations currently. Mental Status Exam: General Appearance: Patient appears to be stated age is alert, directable, and cooperative. Covered in blanket. [place] hair, martins. Behavior: Patient presented as calm and cooperative. improved eye contact Speech: Patient's speech is fluent and nonpressured. Monotone, mildly improving Mood/Affect: Mood is improving, affect is congruent and constricted Suicidality/Homicidality: Denies homicidal ideation. Endorses suicidal ideation, no plan Perceptions: Patient denies any visual hallucinations and denies any auditory hallucinations Though content/process: There is no evidence of any delusional thought content and thought process improving, fairly concrete. Memory and concentration: AOX3, grossly intact for the purposes of this session Judgment and insight: poor, improving mildly Assessment: Major depressive disorder recurrent severe Social anxiety disorder Plan: -Patient continues to meet criteria for inpatient psychiatric admission for symptom stabilization and safety. Patient has signed adult voluntary form and medication consent and was placed in patient's chart. -Medications: Zoloft 100mg QHS for depression and anxiety will likely continue increasing as needed, add melatonin 5mg qhs for sleep, Seroquel to 200 mg at bedtime for insomnia/depression, Requip 0.25mg po qhs for restless legs. -When necessary Ativan and Haldol for agitation/aggression -NRT - continue nicotine gum -SW on board for discharge planning. Encouraged the patient to participate in milieu. He is currently homeless, likely discharge vs wednesday
[2023-12-14] MEDS: MELATONIN 5 MG TABLET PO SCH (21:22)
[2023-12-15 09:33] VITALS: BMI 25.9
[2023-12-15] MEDS ORDERED: busPIRone HCl 5 MG TAB PO PRN (12:01)
--- NOTE | 2023-12-15 12:05 | P.PN ---
Progress Note - Text Progress Note Date: 12/15/23 Interval History: Patient was seen wandering the hallways and was directable and agreeable to sp jerzy with check writer salesperson in the office. Patient says that he is all right. He states his anxiety is high. He states that he was very exhausted last night, but did not sleep well last night. He states that he is not experiencing any more restlessness. He did state that when he was in bed, he was warm, however, his teeth were chattering. Deputy Sheriff Lieutenant told patient we would order blood work for the morning. He is going to some groups. He endorses good appetite and denies all other concerns. His suicidal thoughts are still present, but he has no plan. He denies homicidal ideation. He denies auditory and visual hallucinations currently. Mental Status Exam: General Appearance: Patient appears to be stated age is alert, directable, and cooperative. Dressed casually. [place] hair, martins. Behavior: Patient presented as calm and cooperative. improved eye contact Speech: Patient's speech is fluent and nonpressured. Monotone, mildly improving Mood/Affect: Mood is all right, but anxious, affect is congruent and constricted Suicidality/Homicidality: Denies homicidal ideation. Endorses suicidal ideation, no plan Perceptions: Patient denies any visual hallucinations and denies any auditory hallucinations Though content/process: There is no evidence of any delusional thought content and thought process improving, fairly concrete. Memory and concentration: AOX3, grossly intact for the purposes of this session Judgment and insight: poor, improving mildly Assessment: Major depressive disorder recurrent severe Social anxiety disorder Plan: -Patient continues to meet criteria for inpatient psychiatric admission for symptom stabilization and safety. Patient has signed adult voluntary form and medication consent and was placed in patient's chart. -Medications: increase Zoloft 150 mg QHS for depression and anxiety will likely continue increasing as needed, increase melatonin 10mg qhs for sleep, Seroquel 200 mg at bedtime for insomnia/depression, Requip 0.25mg po qhs for restless legs. Add Buspar 7.5mg tid prn for anxiety -Order labs for morning. CBC, BMP -When necessary Ativan and Haldol for agitation/aggression -NRT - continue nicotine gum -SW on board for discharge planning. Encouraged the patient to participate in milieu. He is currently homeless, likely discharge Wednesday vs Wednesday
[2023-12-15] MEDS: LORazepam 1 MG TAB PO PRN (12:39)
[2023-12-16] MEDS: SERTRALINE 50 MG TAB PO SCH (00:10)
[2023-12-16] MEDS: MELATONIN 5 MG TABLET PO SCH (00:10)
--- NOTE | 2023-12-16 11:50 | P.PN ---
Progress Note - Text Progress Note Date: 12/16/23 Interval History: Patient was seen wandering the hallways and was directable and agreeable to sp jerzy with lead technical writer in the office. Patient says that he is exhausted. He claims to have not slept much last night. He is endorsing suicidal thoughts in the mornings. He states his mood is between mad and sad. He states his anxiety is a 7/10. He denies feeling any restlessness in his legs. He is going to some groups. He endorses good appetite and denies all other concerns. His suicidal thoughts are still present, but he has no plan. He denies homicidal ideation. He denies auditory and visual hallucinations currently. Mental Status Exam: General Appearance: Patient appears to be stated age is alert, directable, and cooperative. Dressed casually. [place] hair, martins. Behavior: Patient presented as calm and cooperative. improved eye contact Speech: Patient's speech is fluent and nonpressured. Monotone, muttered. Mood/Affect: Mood is sad, mad and anxious, affect is congruent and constricted Suicidality/Homicidality: Denies homicidal ideation. Endorses suicidal ideation, no plan Perceptions: Patient denies any visual hallucinations and denies any auditory hallucinations Though content/process: There is no evidence of any delusional thought content and thought process improving, fairly concrete. Memory and concentration: AOX3, grossly intact for the purposes of this session Judgment and insight: poor, improving mildly Assessment: Major depressive disorder recurrent severe Social anxiety disorder Plan: -Patient continues to meet criteria for inpatient psychiatric admission for symptom stabilization and safety. Patient has signed adult voluntary form and medication consent and was placed in patient's chart. -Medications: Zoloft 150 mg QHS for depression and anxiety will likely continue increasing as needed, melatonin 10mg qhs for sleep, increase Seroquel 250mg at bedtime for insomnia/depression, Requip 0.25mg po qhs for restless legs. Buspar 10 mg tid prn for anxiety -When necessary Ativan and Haldol for agitation/aggression -NRT - continue nicotine gum -SW on board for discharge planning. Encouraged the patient to participate in milieu. He is currently homeless, likely discharge Wednesday-early next week if patient is improving.
[2023-12-16] MEDS: LORazepam 0.5 MG TAB PO PRN (12:02)
[2023-12-16 13:14] LABS: Basophils # (A) 0.1 k/uL (0-0.2); Basophils % (A) 1 %; Eosinophils # (A) 0.2 k/uL (0-0.7); Eosinophils % (A) 3 %; HCT 43.8 % (39.0-53.0); HGB 14.6 gm/dL (13.0-17.5); Lymphocytes # (A) 1.9 k/uL (1.0-4.8); Lymphocytes % (A) 25 %; MCHC 33.3 g/dL (31.0-37.0); Mean Platelet Volume 7.8; Monocytes # (A) 0.6 k/uL (0-1.0); Monocytes % (A) 8 %; Neutrophils # (A) 4.7 k/uL (1.3-7.7); Neutrophils % (A) 63 %; Platelet Count 219 k/uL (150-450); RBC 4.57 m/uL (4.30-5.90); WBC 7.6 k/uL (3.8-10.6)
[2023-12-16 13:34] LABS: African American GFR (CKD) >90 (>60 ml/min/1.73 sqM); Anion Gap 5 mmol/L; Blood Urea Nitrogen 11 mg/dL (9-20); Calcium 9.2 mg/dL (8.4-10.2); Carbon Dioxide 27 mmol/L (22-30); Chloride 108 mmol/L (98-107); Glucose 71 mg/dL (74-99); Non-African American GFR(CKD) >90 (>60 ml/min/1.73 sqM); Potassium 4.3 mmol/L (3.5-5.1); Sodium 140 mmol/L (137-145)
[2023-12-16] MEDS: busPIRone HCl 10 MG TAB PO PRN (16:59)
[2023-12-16] MEDS: QUEtiapine 100 MG TAB PO SCH (21:17)
--- NOTE | 2023-12-17 10:54 | P.PN ---
Progress Note - Text Progress Note Date: 12/17/23 Interval History: Patient was seen in his room, and was directable and agreeable to speak with francisco montoya in the office. Patient says that he is feeling very agitated today. He states that he does not know why. He claims that he did not sleep well, due to his room mates snoring. He is going to some groups. He endorses good appetite and denies all other concerns. He asks several questions about his medications, chief writer answered all questions the patient had. He continues to have suicidal thoughts in the mornings and at night, but he has no plan. He denies homicidal ideation. He denies auditory and visual hallucinations currently. Mental Status Exam: General Appearance: Patient appears to be stated age is alert, directable, and cooperative. Dressed casually. [place] hair, martins. Behavior: Patient presented as calm and cooperative. improved eye contact Speech: Patient's speech is fluent and nonpressured. Monotone, muttered. Mood/Affect: Mood is sad, mad and anxious, affect is congruent and constricted Suicidality/Homicidality: Denies homicidal ideation. Endorses suicidal ideatio n, no plan Perceptions: Patient denies any visual hallucinations and denies any auditory hallucinations Though content/process: There is no evidence of any delusional thought content and thought process improving, fairly concrete. Memory and concentration: AOX3, grossly intact for the purposes of this session Judgment and insight: poor, improving mildly Assessment: Major depressive disorder recurrent severe Social anxiety disorder Plan: -Patient continues to meet criteria for inpatient psychiatric admission for symptom stabilization and safety. Patient has signed adult voluntary form and medication consent and was placed in patient's chart. -Medications: Zoloft 150 mg QHS for depression and anxiety will likely continue increasing as needed, melatonin 10mg qhs for sleep, increase Seroquel 300mg at bedtime for insomnia/depression, Requip 0.25mg po qhs for restless legs. Buspar 10 mg tid prn for anxiety, if patient continues to have irritability/agitation, consider switching meds to zprexa, geodon or risperdal -When necessary Ativan and Haldol for agitation/aggression -NRT - continue nicotine gum -SW on board for discharge planning. Encouraged the patient to participate in milieu. He is currently homeless, likely discharge Wednesday-early next week if patient is improving.
[2023-12-17] MEDS: QUEtiapine 100 MG TAB PO SCH (23:27)
--- NOTE | 2023-12-18 12:01 | P.PN ---
Progress Note - Text Interval history: Patient was seen and was directable and agreeable to speak with selling underwriter. reports slightly low energy. Also reports suicidal ideations and depression. At this time patient denies homicidal ideations intent or plan. Denies any Auditory or visual hallucinations. Patient denies any side effects from the medications and has been compliant with meds. Mental status exam: General Appearance: [Patient appears to be older thanstated age is alert, directable, and cooperative.] Behavior: [No agitated behavior. Patient is calm and directable] Speech: Patient's speech is fluent and nonpressured. Mood/Affect: Mood is "depressed", affect is congruent and constricted. Suicidality/Homicidality: reports suicidal ideations.Patient denies having homicidal ideation intent or plan. Perceptions: Patient denies any auditory or visual hallucinations. Though content/process: [There is no evidence of any delusional thought content and thought process is linear and goal-directed.] Memory and concentration: AOX3, grossly intact for the purposes of this session Judgment and insight: improving mildly Assessment/Plan: Continue with current diagnosis. Patient continues to meet criteria for inpatient psychiatric admission for symptom stabilization and safety.[Patient will be maintained on current psychotropic medication regimen.] Monitor for medication compliance and for any psychotropic medication side effects. Will continue to monitor ongoing response to treatment. Encouraged participation in milieu.
--- NOTE | 2023-12-19 10:07 | P.PN ---
Progress Note - Text Interval history: Patient was seen and was directable and agreeable to speak with telegraphic typewriter operator chief. states that he feels that the medication is making him agitated. Also reports anxiety.. At this time patient denies any suicidal or homicidal ideations intent or plan. Denies any Auditory or visual hallucinations. Mental status exam: General Appearance: [Patient appears to be older thanstated age is alert, directable, and cooperative.] Behavior: [No agitated behavior. Patient is calm and directable] Speech: Patient's speech is fluent and nonpressured. Mood/Affect: Mood is improving mildly, affect is congruent and constricted. Suicidality/Homicidality: Patient denies having any suicidal or homicidal ideation intent or plan. Perceptions: Patient denies any auditory or visual hallucinations. Though content/process: [There is no evidence of any delusional thought content and thought process is linear and goal-directed.] Memory and concentration: AOX3, grossly intact for the purposes of this session Judgment and insight: improving mildly Assessment/Plan: Continue with current diagnosis. Patient continues to meet cri teria for inpatient psychiatric admission for symptom stabilization and safety.[Patient will be maintained on current psychotropic medication regimen.] Monitor for medication compliance and for any psychotropic medication side effects. Will continue to monitor ongoing response to treatment. Encouraged participation in milieu.
--- NOTE | 2023-12-20 11:27 | P.PN ---
Progress Note - Text Progress Note Date: 12/20/23 Interval History: Patient was seen [wandering the hallways] and was directable and agreeable to speak with travel writer in the office. Speaking with the patient he notes that he had thoughts of this morning including possibilities of hanging himself. He notes that he currently does not have any suicidal thoughts. He denies any homicidal thoughts. Patient had noted that his depression is 8/10 and his anxiety 7/10 with 10 being worst. He notes that he is struggling with sleep. Feels that his energy is fair. Denies any problems with appetite. He feels that his concentration remains poor. When discussing possibilities after leaving patient notes that he only thought about going to his car but did not take in the fact that it is getting cold outside. Was encouraged to start working with social work staff in order to resolve aftercare plans. Patient denies any auditory, visual hallucinations and denies any paranoia or delusions. Patient denies any side effects from the medications and has been compliant with meds. Mental Status Exam: General Appearance: [Patient appears to be stated age is alert, directable, and cooperative.] Behavior: [Patient is calmly seated without any agitated behavior.] Speech: Patient's speech is fluent and nonpressured. Mood/Affect: Patient presents moderately depressed and affect is somewhat flat Suicidality/Homicidality: Patient denies having any homicidal thoughts but notes that he did have suicidal thoughts this morning with a plan. Perceptions: Patient denies any visual hallucinations [and denies any auditory hallucinations] Though content/process: [There is no evidence of any delusional thought content and thought process is linear and goal-directed.] Memory and concentration: AOX3, grossly intact for the purposes of this session Judgment and insight: Improving mildly Diagnosis: Major depressive disorder recurrent moderate with suicidal ideations Social anxiety disorder Assessment Patient is making limited progress and still voicing suicidal thoughts. It appears that the patient is minimally invested in his long-term care. Plan: -Patient continues to meet criteria for inpatient psychiatric admission for symptom stabilization and safety. Patient has signed adult voluntary form and medication consent and was placed in patient's chart. -Medications: Continue Zoloft 150 mg take 1 tablet by mouth once daily for depression Continue Seroquel 300 mg at bedtime for insomnia/depression/psychosis Continue BuSpar 10 mg take 1 tablet by mouth twice daily for anxiety -When necessary Ativan and Haldol for agitation/aggression. -NRT -continue nicotine gum -SW on board for discharge planning. Encouraged the patient to participate in milieu.
--- NOTE | 2023-12-21 13:03 | P.PN ---
Progress Note - Text Progress Note Date: 12/21/23 Chief complaint: "Suicidal thoughts". Interval History: Patient was seen [wandering the hallways] and was directable and agreeable to speak with typewriter repairer in the office. Patient for the first time is noting that he has not had any suicidal thoughts today. He is expressing wanting to be discharged tomorrow. He denies any homicidal thoughts. Overall he feels he is doing "good". He notes that his depression and anxiety are moderate. He continues to struggle with sleep as well as concentration. Feels that his energy and appetite are normal. The patient denies any auditory, visual hallucinations and denies any paranoia or delusions. Patient denies any side effects from the medications and has been compliant with meds. Mental Status Exam: General Appearance: [Patient appears to be stated age is alert, directable, and cooperative.] Behavior: [Patient is calmly seated without any agitated behavior.] Speech: Patient's speech is fluent and nonpressured. Mood/Affect: Mood is improving mildly, affect is congruent and constricted. Suicidality/Homicidality: Patient denies having any suicidal or homicidal ideation intent or plan. Perceptions: Patient denies any visual hallucinations [and denies any auditory hallucinations] Though content/process: [There is no evidence of any delusional thought content and thought process is linear and goal-directed.] Memory and concentration: AOX3, grossly intact for the purposes of this session Judgment and insight: Improving mildly Diagnosis: Major depressive disorder recurrent moderate with suicidal ideations Social anxiety disorder Assessment Patient is making improvements he did ask for medication to improve his overall anxiety. He is ready for discharge anticipated discharge tomorrow. Plan: -Patient continues to meet criteria for inpatient psychiatric admission for symptom stabilization and safety. Patient has signed adult voluntary form and medication consent and was placed in patient's chart. -Medications: Continue Zoloft 150 mg take 1 tablet by mouth once daily for depression Continue Seroquel 300 mg at bedtime for insomnia/depression/psychosis Increase BuSpar 20 mg take 1 tablet by mouth twice daily for anxiety -When necessary Ativan and Haldol for agitation/aggression. -NRT -continue nicotine gum -SW on board for discharge planning. Encouraged the patient to participate in milieu.
[2023-12-21] MEDS: busPIRone HCl 10 MG TAB PO SCH (20:31)
[2023-12-22 07:03] VITALS: BP 101/63; PULSE 70; RESP 14; TEMP 98.2
--- NOTE | 2023-12-22 11:42 | P.DS ---
Providers Date of admission: 12/03/23 17:01 Expected date of discharge: 12/22/23 Attending physician: Migel Howard MD Discharge summary admission HPI: Admission note was completed by Dr. Richard "patient was seen in the emergency room on 1010 and their evaluation was: The patient is a 33-year-old male with no known PMH who had presented to the emergency room for depression and suicidal ideation after apparently attempting to overdose. The patient was admitted to the mental health unit where he was seen and evaluated. The patient notes that he took too much NyQuil accidentally while he was trying to sleep. He denies any past medical history and no active complaints at the time of interview. He does report smoking half pack of cigarettes daily. Denied illicit substance or alcohol use. 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 Denied experiencing chest discomfort, shortness of breath, fever, chills, cough, nausea, vomiting, abdominal pain, dysuria, diarrhea." Hospital course: Upon admission to the unit patient was directable and agreeable to commence treatment and signed adult voluntary form. Patient got along well with other patients on the unit and followed unit protocol. Patient was compliant with the medications and denied any side effects throughout hospital course. Patient was started on Zoloft tapered to 150 mg to address his social anxiety disorder and depression, BuSpar tapered to 20 mg twice daily to address his anxiety. Additionally patient was placed on Seroquel 300 mg at bedtime to address his depression/insomnia. Patient spoke of his stressors and engaged in therapy both group and individual. Patient was also seen by medical team for history and physical exam. Throughout the course of the hospitalization patient gradually improved with regards to mood, anxiety, sleep and returned back to their baseline level of functioning became more future oriented with improved insight and judgment. On the day of discharge patient denied any suicidal or homicidal ideations intent or plan denied any auditory or visual hallucinations. Patient endorsed wanting to live for me and his life back. The patient denied any access to guns or weapons. Patient denied any paranoia and did not endorse any delusions. Patient does not have a significant history of substance abuse and was counseled on abstaining from all substances including alcohol and marijuana. Patient was also counseled on the medications and need for regular compliance and was encouraged to follow-up with their outpatient appointment for mental health and also for primary care. Prior to discharge a medical social worker will answer any questions and ensure safety upon discharge incuding making sure that guns/weapons are either removed from the home or locked away. Meeting with the patient day of discharge this is his second day that he declined that he had any suicidal thoughts. He does have a safety plan including calling 911 if he has to. He notes mild depression and anxiety and had quoted saying that his mood is the best he has had in a long time. He denied any homicidal ideations. He notes that his sleep, energy, appetite were normal. He continues to struggle with concentration but with improvements. Mental status exam: General Appearance: Patient appears to be his stated age is alert, pleasant, and cooperative. Patient is in no acute distress and has improved hygiene and grooming Behavior: Patient is calmly seated without any agitated behavior. Speech: Patient's speech is fluent and nonpressured. Mood/Affect: Patient reports their mood is "better good", affect is congruent and euthymic. Suicidality/Homicidality: Patient denies having any suicidal or homicidal ideation intent or plan. Perceptions: Patient denies any auditory or visual hallucinations. Though content/process: There is no evidence of any delusional thought content and thought process is linear and goal-directed. More future oriented Memory and concentration: AOX3, grossly intact for the purposes of this session. Judgment and insight: Chronically poor, however has improved with guarded prognosis Impression: Major depressive disorder recurrent moderate with suicidal ideations Social anxiety disorder Plan: -Continue with discharge today as patient has improved and stabilized psychiatrically and is not currently an imminent threat to themself and/or others. Patient will remain at chronically elevated risk for harm to self a nd/or others due to their impulsivity and substance abuse. -Continue medications: Continue Zoloft 150 mg take 1 tablet by mouth once daily for depression Continue Seroquel 300 mg at bedtime for insomnia/depression/psychosis Continue BuSpar 20 mg take 1 tablet by mouth twice daily for anxiety -Patient was counseled on the need for medication compliance and appropriate follow-up at mental health and also primary care for medical issues. Patient verbalized understanding and agreed. -Social work to [help coordinate patients discharge today also to ensure safe home environment that guns/weapons are either removed from the home or locked away. Social work also to arrange for patients follow up appointments with [facility] for psychiatric care along with follow up with primary care provider. -Patient counseled on abstaining from recreational drugs and marijuana and alcohol. Was informed/educated on the adverse effects on their physical and mental health. Patient verbally agreed and understood. -Patient was instructed to return to the hospital or seek immediate medical care if their psychiatric or medical symptoms do worsen or reoccur. Consults: 12/03/23 17:09 Consult Physician Routine Consulting Provider: [facility] Consult Reason/Comments: H&P and medical Do you want consulting provider notified?: Yes Primary care physician: Stated None Patient Condition at Discharge: Fair Plan - Discharge Summary Discharge Rx Participant: Yes New Discharge Prescriptions: New Melatonin 10 mg PO HS 30 Days #30 tab Nicotine Gum (Polacrilex) [Nicorette] 2 mg BUCCAL Q2HR PRN 30 Days #30 pieceofgum PRN Reason: Nicotine Cravings QUEtiapine [SEROquel] 300 mg PO HS 30 Days #90 tab Sertraline [Zoloft] 150 mg PO HS 30 Days #90 tab busPIRone HCl [Buspar] 20 mg PO BID 30 Days #120 tab Discharge Medication List Melatonin 10 mg PO HS 30 Days #30 tab 12/22/23 [Rx] Nicotine Gum (Polacrilex) [Nicorette] 2 mg BUCCAL Q2HR PRN 30 Days #30 pieceofgum 12/22/23 [Rx] QUEtiapine [SEROquel] 300 mg PO HS 30 Days #90 tab 12/22/23 [Rx] Sertraline [Zoloft] 150 mg PO HS 30 Days #90 tab 12/22/23 [Rx] busPIRone HCl [Buspar] 20 mg PO BID 30 Days #120 tab 12/22/23 [Rx] Follow up Appointment(s)/Referral(s): [facility] [Outside] - 12/27/23 1:30 pm (with Geeta) [facility] [NON-STAFF] - 1 Week Patient Instructions/Handouts: Depression (DC), Social Anxiety Disorder (GEN) Activity/Diet/Wound Care/Special Instructions: Avoid the use of street drugs and alcohol. Take all medications as prescribed. When you are in need of refills on your medications, please contact your medical provider and/or outpatient psychiatrist/provider to have this done. Please go to your scheduled outpatient appointment for aftercare treatment. If symptoms return or become worse, call the crisis line at and/or go to the nearest emergency room for evaluation. National Suicide Hotline 988 Discharge Disposition: HOME SELF-CARE
== END 2023-12-22 14:07 | disposition home or self-care (01) | DRG 751 ==
LOC: EC 22:41 → 3MHU 12-03 17:01
PROVIDERS: ADMIT Psychiatry & Neurology Psychiatry; ATTEND Psychiatry & Neurology Psychiatry
DX: F33.2 Major depressive disorder, recurrent severe without psychotic features (principal); F12.10 Cannabis abuse, uncomplicated; F17.210 Nicotine dependence, cigarettes, uncomplicated; F23 Brief psychotic disorder; F40.10 Social phobia, unspecified; F43.20 Adjustment disorder, unspecified; G25.81 Restless legs syndrome; G47.00 Insomnia, unspecified; R45.851 Suicidal ideations; Z56.0 Unemployment, unspecified; Z59.02 Unsheltered homelessness; Z60.8 Other problems related to social environment; Z79.899 Other long term (current) drug therapy; Z91.51 Personal history of suicidal behavior; Z11.52 Encounter for screening for COVID-19
CPT/HCPCS: 36415; 80048; 80053; 80061; 80143; 80179; 80306; 80320; 81001; 82075; 82248; 83036; 83690; 84443; 84484; 85025; 85610; 87635; 99285

== ENCOUNTER 2024-08-21 14:04 | Emergency (ER) | payer OTHER ==
[2024-08-21] MEDS: CYCLOBENZAPRINE 10 MG TAB PO STA (14:43)
[2024-08-21] MEDS: LIDOCAINE 4% PATCH TOPICAL ONE (14:43)
[2024-08-21] MEDS: KETOROLAC 15 MG/ML 1 ML VIAL IM STA (14:43)
--- NOTE | 2024-08-21 14:56 | ED ---
Back Pain HPI - General Chief Complaint: Back Pain/Injury Stated Complaint: L Side of back pain Time Seen by Provider: 08/21/24 14:15 Source: patient, RN notes reviewed Mode of arrival: ambulatory Limitations: no limitations - History of Present Illness Initial Comments: This is a 33-year-old male who presents to the emergency department for back pain. Patient reports pain in the left mid back for about a week. Denies any known injuries. Pain is worse with movement. States that he feels like he has a lot of gas. He did try taking a laxative which helped him have a bowel movement, but did not affect the pain. Denies any loss of bowel/bladder control or saddle anesthesia. Denies any history of kidney stones. Denies any difficulty urinating. He has not had any radiation of pain into the abdomen or nausea/vomiting. MD Complaint: back pain - Related Data Previous Rx's Medication Instructions Recorded Melatonin 10 mg PO HS 30 Days #30 tab 12/22/23 Nicotine Gum (Polacrilex) 2 mg BUCCAL Q2HR PRN 30 Days #30 12/22/23 [Nicorette] pieceofgum QUEtiapine [SEROquel] 300 mg PO HS 30 Days #90 tab 12/22/23 Sertraline [Zoloft] 150 mg PO HS 30 Days #90 tab 12/22/23 busPIRone HCl [Buspar] 20 mg PO BID 30 Days #120 tab 12/22/23 Cyclobenzaprine [Flexeril] 10 mg PO TID PRN #30 tab 08/21/24 Ketorolac [Toradol] 10 mg PO Q6HR PRN #15 tab 08/21/24 Lactulose 10 - 20 gm PO DAILY PRN #473 ml 08/21/24 Lidocaine 5% Patch [Lidoderm 5% 1 patch TOPICAL DAILY PRN #30 patch 08/21/24 Patch] Allergies Allergy/AdvReac Type Severity Reaction Status Date / Time No Known Allergies Allergy Verified 08/21/24 14:13 Review of Systems ROS Statement: Those systems with pertinent positive or pertinent negative responses have been documented in the HPI. ROS Other: All systems not noted in ROS Statement are negative. Past Medical History Past Medical History: No Reported History History of Any Multi-Drug Resistant Organisms: None Reported Past Surgical History: No Surgical Hx Reported Past Psychological History: No Psychological Hx Reported Smoking Status: Current every day smoker Past Alcohol Use History: Occasional Past Drug Use History: None Reported General Exam Limitations: no limitations General appearance: alert, in no apparent distress Head exam: Present: atraumatic, normocephalic, normal inspection Respiratory exam: Present: normal lung sounds bilaterally. Absent: respiratory distress, wheezes, rales, rhonchi, stridor Cardiovascular Exam: Present: regular rate, normal rhythm GI/Abdominal exam: Present: soft, normal bowel sounds. Absent: distended, tenderness, guarding, rebound, rigid Back exam: Present: other (Mild tenderness to the left mid to lower back) Neurological exam: Present: alert, oriented X3, CN II-XII intact Psychiatric exam: Present: normal affect, normal mood Skin exam: Present: warm, dry, intact, normal color. Absent: rash Course Vital Signs 08/21/24 08/21/24 14:11 16:08 Temperature 98.2 F 98.0 F Pulse Rate 71 70 Respiratory 16 18 Rate Blood Pressure 144/71 136/71 O2 Sat by Pulse 98 99 Oximetry Medical Decision Making - Medical Decision Making This is a 33-year-old male who presents to the emergency department for back pain. Was pt. sent in by a medical professional or institution? @ -No Did you speak to anyone other than the patient for history? @ -No Did you review nursing and triage notes? @ -Yes, and I agree, it is accurate with regards to the patient's symptoms. Were old charts reviewed? @ -No Differential Diagnosis? @ -Differential Back Pain: Strain, zoster, cauda equina syndrome, epidural abscess, vertebral osteomyelitis, discitis, fracture, subluxation, disc herniation, DJD, spinal s tenosis, dissection, AAA, pancreatitis, peptic ulcer disease, pyelonephritis, kidney stone, this is not meant to be an all-inclusive list. EKG interpreted by me (3pts min.)? @ -Not obtained X-rays interpreted by me (1pt min.)? @ -X-ray of the thoracic and lumbar spine obtained. My interpretation identifies mild wedging of the L1 vertebrae. KUB x-ray obtained. My interpretation identifies no dilation of the bowel loops. CT interpreted by me (1pt min.)? @ -Not obtained U/S interpreted by me (1pt. min.)? @ -Not obtained What testing was considered but not performed? (CT, X-rays, U/S, labs)? Why? @ -None What meds were considered but not given? Why? @ -None Did you discuss the management of the patient with other professionals? @ -No Did you reconcile home meds? @ -No Was smoking cessation discussed for >3mins.? @ -No Was critical care preformed (if so, how long)? @ -No Were there social determinants of health that impacted care today? How? (Homelessness, low income, unemployed, alcoholism, drug addiction, transportation, low edu. Level, literacy, decrease access to med. care, fpc, rehab)? @ -No Was there de-escalation of care discussed even if they declined? (Discuss DNR or withdrawal of care, Hospice)? @ -No What co-morbidities impacted this encounter? (DM, HTN, Smoking, COPD, CAD, Cancer, CVA, Hep., AIDS, mental health diagnosis, sleep apnea, morbid obesity)? @ -None Was patient admitted / discharged? @ -Discharged. Urinalysis negative for signs of blood or infection. KUB x-ray demonstrates moderate stool burden with fecal and gas material throughout the colon and rectum. No other acute process was identified. X-ray of the thoracic and lumbar spine obtained. They did note mild wedging of the anterior aspect of the L1 vertebral body. They advised correlation with pain in this region for compression fracture. Findings reviewed with the patient. He did not have direct tenderness over the midline, however he did have discomfort to the left side of this area. Pain was treated in the emergency department. Prescription for Toradol, Flexeril, and lidocaine patches prescribed for the discomfort. Lactulose prescribed for the constipation. Information for follow-up with orthopedic spine was provided with regards to the abnormal imaging of the back. Patient discharged home in stable condition. Case discussed with ED attending Dr. Garza. Return precautions reviewed in depth, the patient is instructed to return to the emergency department with any new, worsening, or concerning symptoms. Patient verbalized understanding. Undiagnosed new problem with uncertain prognosis? @ -None Drug Therapy requiring intensive monitoring for toxicity (Heparin, Nitro, Insulin, Cardizem)? @ -None Were any procedures done? @ -None Diagnosis/symptom? @ -Left-sided back pain, constipation Acute, or Chronic, or Acute on Chronic? @ -Acute Uncomplicated (without systemic symptoms) or Complicated (systemic symptoms)? @ -Uncomplicated Side effects of treatment? @ -None Exacerbation, Progression, or Severe Exacerbation] @ -Not applicable Poses a threat to life or bodily function? @ -No - Lab Data Lab Results 08/21/24 Range/Units 14:47 Urine Color Light Yellow Urine Appearance Clear (Clear) Urine pH 6.5 (5.0-8.0) Ur Specific [place] 1.009 (1.001-1.035) Urine Protein Negative (Negative) Urine Glucose (UA) Negative (Negative) Urine Ketones 2+ H (Negative) Urine Blood Negative (Negative) Urine Nitrite Negative (Negative) Urine Bilirubin Negative (Negative) Urine Urobilinogen <2.0 (<2.0) mg/dL Ur Leukocyte Esterase Negative (Negative) - Radiology Data Radiology results: report reviewed, image reviewed Disposition Clinical Impression: Left-sided back pain, Constipation, Wedge compression fracture of L1 vertebra Disposition: HOME SELF-CARE Instructions (If sedation given, give patient instructions): Vertebral Compression Fracture (ED), Acute Low Back Pain (ED), Back Pain (ED) Additional Instructions: Return to the emergency department with any new, worsening, or concerning symptoms. Take the Toradol with Tylenol as needed for pain relief. If you choose to take the Toradol, do not take any other anti-inflammatories such as ibuprofen, take one or the other. Take the Flexeril up to 3 times daily, however be aware that it may make you drowsy. You can also apply the lidocaine patches daily. Take the lactulose daily to help with the constipation. Contact the orthopedic review specialist listed below. Let them know that you were seen in the emergency department for back pain and found to have a possible L1 compression fracture. They will schedule you for a follow-up appointment. Follow up with your primary care provider in 1-2 days. Prescriptions: Cyclobenzaprine [Flexeril] 10 mg PO TID PRN #30 tab PRN Reason: Pain Lactulose 10 - 20 gm PO DAILY PRN #473 ml PRN Reason: Constipation Lidocaine 5% Patch [Lidoderm 5% Patch] 1 patch TOPICAL DAILY PRN #30 patch PRN Reason: Pain Ketorolac [Toradol] 10 mg PO Q6HR PRN #15 tab PRN Reason: Pain Is patient prescribed a controlled substance at d/c from ED?: No Referrals: None,Stated [Primary Care Provider] - 1-2 days Robert Pisano DO [Doctor of Osteopathic Medicine] - 1-2 days Time of Disposition: 15:57
[2024-08-21 14:57] LABS: Appearance,Urine Clear (Clear); Bilirubin,Urine Negative (Negative); Blood,Urine Negative (Negative); Color,Urine Light Yellow; Glucose,Urine (UA) Negative (Negative); Ketones,Urine 2+ (Negative); Leukocyte Esterase,Urine Negative (Negative); Nitrite,Urine Negative (Negative); PH, Urine 6.5 (5.0-8.0); Protein,Urine Negative (Negative); Specific Gravity,Urine 1.009 (1.001-1.035); Urobilinogen,Urine <2.0 mg/dL (<2.0)
[2024-08-21] MEDS: SIMETHICONE 80 MG CHEWABLE PO STA (15:04)
--- NOTE | 2024-08-21 15:23 | XR ---
EXAMINATION TYPE: XR KUB DATE OF EXAM: 08/21/2024 2:57 PM COMPARISON: CLINICAL INDICATION: Male, 33 years old with history of Left flank pain, constipation; H TECHNIQUE: One radiographic view of the abdomen was obtained. FINDINGS: There is a moderate stool burden, otherwise, the bowel gas pattern is nonspecific without d ilated loops of small or large bowel. . Fecal material and gas are demonstrated throughout the colon and rectum. There is no evidence for organomegaly or pneumoperitoneum. No acute osseous process. No abnormal calcifications are present. IMPRESSION: Nonspecific bowel gas pattern without radiographic evidence for acute process. [facility], , 08/21/2024 3:20 PM
--- NOTE | 2024-08-21 15:26 | XR ---
EXAMINATION TYPE: XR thoracic spine 2V, XR lumbar spine 2 or 3V DATE OF EXAM: 08/21/2024 3:03 PM COMPARISON: None CLINICAL INDICATION: Male, 33 years old with history of Left mid to lower back pain; PHH, pain TECHNIQUE: XR thoracic spine 2V, XR lumbar spine 2 or 3V views of the spine in Frontal, swimmers and lateral projections. FINDINGS: Mild wedging of the L1 vertebral body anteriorly.. Mild scoliosis changes of the midthoracic spine de xtroscoliosis There is no evidence of disk space narrowing or loss of vertebral body height. There is normal alignment of the thoracic vertebral bodies. IMPRESSION: 1. Mild wedging of the anterior aspect of L1 vertebral body. Correlate with pain in this region for compression fracture. 2. Mild dextroscoliosis of thoracic spine with Harrell angle 11 degrees. [facility], , 08/21/2024 3:24 PM
[2024-08-21 16:09] VITALS: BP 136/71; PULSE 70; RESP 18; TEMP 98
== END 2024-08-21 16:09 | disposition home or self-care (01) ==
LOC: EC 14:04
DX: S32.010A Wedge compression fracture of first lumbar vertebra, initial encounter for closed fracture (principal); K59.00 Constipation, unspecified; M54.9 Dorsalgia, unspecified; F17.200 Nicotine dependence, unspecified, uncomplicated; X50.0XXA Overexertion from strenuous movement or load, initial encounter
CPT/HCPCS: 81003; 72070; 72100; 74018; 99283; 96372; J1885

== ENCOUNTER 2024-08-29 08:31 | Emergency (ER) | payer OTHER ==
[2024-08-29 08:35] VITALS: BP 153/90; PULSE 98; RESP 16; TEMP 98.3
--- NOTE | 2024-08-29 08:38 | ED ---
Psych HPI - General Chief Complaint: Psychiatric Symptoms Stated Complaint: Mental health eval Time Seen by Provider: 08/29/24 08:38 Source: patient, RN notes reviewed Mode of arrival: ambulatory - History of Present Illness Initial Comments: 33-year-old male presented the ER for mental health evaluation. Patient states for the past week he has "not been right in the head". He denies suicidal or homicidal ideations but does state if "they want to fight will fight". States he is having increased aggression and anger outburst. He also admits to having recent bad dreams he states he does not know what happens in the dreams but they are "bad". Patient admits to smoking marijuana denies any other drug or alcohol use. Denies any auditory visual hallucinations. Patient reports he has been evaluated in the past for mental health and does not regularly take his medications. He denies any chest pain, shortness of breath, abdominal pain or other complaints - Related Data Previous Rx's Medication Instructions Recorded Melatonin 10 mg PO HS 30 Days #30 tab 12/22/23 Nicotine Gum (Polacrilex) 2 mg BUCCAL Q2HR PRN 30 Days #30 12/22/23 [Nicorette] pieceofgum QUEtiapine [SEROquel] 300 mg PO HS 30 Days #90 tab 12/22/23 Sertraline [Zoloft] 150 mg PO HS 30 Days #90 tab 12/22/23 busPIRone HCl [Buspar] 20 mg PO BID 30 Days #120 tab 12/22/23 Cyclobenzaprine [Flexeril] 10 mg PO TID PRN #30 tab 08/21/24 Ketorolac [Toradol] 10 mg PO Q6HR PRN #15 tab 08/21/24 Lactulose 10 - 20 gm PO DAILY PRN #473 ml 08/21/24 Lidocaine 5% Patch [Lidoderm 5% 1 patch TOPICAL DAILY PRN #30 patch 08/21/24 Patch] Allergies Allergy/AdvReac Type Severity Reaction Status Date / Time No Known Allergies Allergy Verified 08/21/24 14:13 Review of Systems ROS Statement: Those systems with pertinent positive or pertinent negative responses have been documented in the HPI. ROS Other: All systems not noted in ROS Statement are negative. Past Medical History Past Medical History: No Reported History History of Any Multi-Drug Resistant Organisms: None Reported Past Surgical History: No Surgical Hx Reported Past Psychological History: Anxiety Smoking Status: Current every day smoker Past Alcohol Use History: Occasional Past Drug Use History: None Reported General Exam Limitations: no limitations General appearance: alert, in no apparent distress Respiratory exam: Present: normal lung sounds bilaterally. Absent: respiratory distress, wheezes, rales, rhonchi, stridor Cardiovascular Exam: Present: regular rate, normal rhythm, normal heart sounds. Absent: systolic murmur, diastolic murmur, rubs, gallop, clicks Extremities exam: Present: normal inspection, full ROM, normal capillary refill. Absent: tenderness, pedal edema, joint swelling, calf tenderness Neurological exam: Present: alert, oriented X3, CN II-XII intact Psychiatric exam: Present: other (Avoiding eye contact. Speaking in low tone.) Skin exam: Present: warm, dry, intact, normal color. Absent: rash Course Vital Signs 08/29/24 08:33 Temperature 98.3 F Pulse Rate 98 Respiratory 16 Rate Blood Pressure 153/90 O2 Sat by Pulse 98 Oximetry Medical Decision Making - Medical Decision Making Was pt. sent in by a medical professional or institution (, PA, DRAW PRESS OPERATOR, urgent care, hospital, or senior care...) When possible be specific @ -No Did you speak to anyone other than the patient for history (EMS, parent, family, police, friend...)? What history was obtained from this source @ -No Did you review nursing and triage notes (agree or disagree)? Why? @ -I reviewed and agree with nursing and triage notes Were old charts reviewed (outside hosp., previous admission, EMS record, old EKG, old radiological studies, urgent care reports/EKG's, senior care records)? Report findings @ -No old charts were reviewed Differential Diagnosis (chest pain, altered mental status, abdominal pain women, abdominal pain men, vaginal bleeding, weakness, fever, dyspnea, syncope, headache, dizziness, GI bleed, back pain, seizure, CVA, palpatations, mental health, musculoskeletal)? @ -Differential Mental Health: Depression, anxiety, bipolar, psychosis, schizophrenia, borderline personality, situational depression, adjustment disorder, behavioral disorder, brain tumor, malingering, substance abuse, encephalopathy, medication reaction, dementia, hypothyroidism, degenerative neurologic disorder, lupus.... This is not meant to be all-inclusive list EKG interpreted by me (3pts min.). @ -None done X-rays interpreted by me (1pt min.). @ -None done CT interpreted by me (1pt min.). @ -None done U/S interpreted by me (1pt. min.). @ -None done What testing was considered but not performed or refused? (CT, X-rays, U/S, labs)? Why? @ -None What meds were considered but not given or refused? Why? @ -None Did you discuss the management of the patient with other professionals (professionals i.e. Dr., PA, DRAW PRESS OPERATOR, lab, RT, psych nurse, social media strategist, hospitalist, teacher, military source operations officer, pillowcase cleaner)? Give summary @ -No Was smoking cessation discussed for >3mins.? @ -No Was critical care preformed (if so, how long)? @ -No Were there social determinants of health that impacted care today? How? (Homelessness, low income, unemployed, alcoholism, drug addiction, transportation, low edu. Level, literacy, decrease access to med. care, longterm, rehab)? @ -No Was there de-escalation of care discussed even if they declined (Discuss DNR or withdrawal of care, Hospice)? DNR status @ -No What co-morbidities impacted this encounter? (DM, HTN, Smoking, COPD, CAD, Cancer, CVA, ARF, Chemo, Hep., AIDS, mental health diagnosis, sleep apnea, morbid obesity)? @ -None Was patient admitted / discharged? Hospital course, mention meds given and route, prescriptions, significant lab abnormalities, going to OR and other pertinent info. @ -Patient left AGAINST MEDICAL ADVICE. 33-year-old male presented ER for mental health evaluation. Vital signs stable. Patient denying SI or HI. Patient medically cleared for EPS evaluation. Prior to EPS evaluation, patient eloped from the emergency department. Patient left AGAINST MEDICAL ADVICE Undiagnosed new problem with uncertain prognosis? @ -No Drug Therapy requiring intensive monitoring for toxicity (Heparin, Nitro, Insulin, Cardizem)? @ -No Were any procedures done? @ -No Diagnosis/symptom? @ -AMA Acute, or Chronic, or Acute on Chronic? @ -N/A Uncomplicated (without systemic symptoms) or Complicated (systemic symptoms)? @ -N/A Side effects of treatment? @ -No Exacerbation, Progression, or Severe Exacerbation? @ -No - Lab Data Lab Results 08/29/24 Range/Units 09:00 Urine Opiates Screen Not Detected (NotDetected) Ur Oxycodone Screen Not Detected (NotDetected) Urine Methadone Screen Not Detected (NotDetected) Ur Barbiturates Screen Not Detected (NotDetected) U Tricyclic Antidepress Not Detected (NotDetected) Ur Phencyclidine Scrn Not Detected (NotDetected) Ur Amphetamines Screen Not Detected (NotDetected) U Methamphetamines Scrn Not Detected (NotDetected) U Benzodiazepines Scrn Not Detected (NotDetected) Urine Cocaine Screen Not Detected (NotDetected) U Marijuana (THC) Screen Detected H (NotDetected) Disposition Clinical Impression: Left against medical advice Disposition: LEFT AGAINST MEDICAL ADVICE Condition: Undetermined Referrals: None,Stated [Primary Care Provider] - 1-2 days Time of Disposition: 06:26
[2024-08-29 09:54] LABS: Barbiturate Screen,Urine Not Detected (NotDetected); Benzodiazepines Screen,Urine Not Detected (NotDetected); Opiate Screen,Urine Not Detected (NotDetected); Phencyclidine Screen,Urine Not Detected (NotDetected); Tricyclic Antidepressant,Urine Not Detected (NotDetected); Urn Cannabinoid Scrn Detected (NotDetected)
[2024-08-29 09:55] LABS: Oxycodone Screen, Urine Not Detected (NotDetected)
== END 2024-08-29 12:21 | disposition left against medical advice (07) ==
LOC: EC 08:31
DX: Z00.8 Encounter for other general examination (principal); F17.200 Nicotine dependence, unspecified, uncomplicated; Z53.29 Procedure and treatment not carried out because of patient's decision for other reasons
CPT/HCPCS: 80306; 82075; 99284